=== PATIENT | female | born 1985 | race Caucasian/White ===

== ENCOUNTER 2017-03-16 09:07 | Emergency (ER) | payer MEDICAID | END 2017-03-16 10:45 | disposition home or self-care (01) | LOC: NAV ERS 09:07 | DX: S81.831A Puncture wound without foreign body, right lower leg, initial encounter (principal); J45.909 Unspecified asthma, uncomplicated; Z79.899 Other long term (current) drug therapy; W55.51XA Bitten by raccoon, initial encounter; Y92.009 Unspecified place in unspecified non-institutional (private) residence as the place of occurrence of the external cause | CPT/HCPCS: 99283 ==